=== PATIENT | female | born 1995 | race Caucasian/White ===

== ENCOUNTER 2024-05-21 17:58 | Observation (INO) | payer BC, OTHER ==
--- NOTE | 2024-05-21 20:00 | ERPHSYRPT ---
- History of Present Illness Time Seen by Provider: 05/21/24 19:45 Historian: patient Exam Limitations: no limitations Patient Subjective Stated Complaint: nausea, vomiting, diarrhea, abd pain since 11 am Triage Nursing Assessment: Pt brought back in wheelchair by Jeremiah Sanchez RN. Pt is alert and oriented x4. Pt's mother at bedside. Pt began feeling bad at 11am this morning, began vomiting with diarrhea at 2pm today, vomiting approx every 30 minutes. Pt c/o lower abd pain, describes as cramping and coming in waves. Pt states, "I've had some blood in my stool today too". Physician History: For the past 9 hours pt has had diarrhea with blood in her stool; for the past 6 hours pt has vomited about 20 times without blood; today pt has had lower abdominal cramping 9/10 in severity and a subjective fever. Pt also states she has had a cough productive of clear phlegm for the past 4 weeks. Allergies/Adverse Reactions: No Known Drug Allergies Allergy (Verified 05/21/24 19:39) Home Medications: Ethinyl Estradiol/Drospirenone [Izzy 28 Tablet] 1 tab PO DAILY 05/21/24 [History] Hx Tetanus, Diphtheria Vaccination/Date Given: Yes Hx Influenza Vaccination/Date Given: No Hx Pneumococcal Vaccination/Date Given: No Travel Risk - International Travel Have you traveled outside of the country in past 3 weeks: No - Emerging Infectious Disease Are you exhibiting symptoms associated with any current EIDs: Yes Symptoms: Abdominal Pain, Cough: New Onset, Headaches/Body Aches/, Vomitting - Review of Systems Constitutional: Fever Respiratory: Cough Abdominal/Gastrointestinal: Abdominal Pain, Vomiting, Diarrhea Genitourinary Symptoms: No Dysuria Neurological: No Headache - Past Medical History Pertinent Past Medical History: Yes Female Reproductive Disorders: Other Other Medical History: ovarian cyst - Past Surgical History Past Surgical History: Yes Other Surgical History: gum surgery and wisdom teeth - Female History Hx Last Menstrual Period: 2 weeks ago Hx Now: No - Social History Smoking Status: Never smoker Exposure to second hand smoke: No Drug Use: none Patient Lives Alone: No - Social Determinants of Health Will the patient participate in the screening: Yes Do you worry about a steady place to live?: No Do you have any problems with any of the following?: No known problems In the past 12 months,have you had to go without utilities?: No Transportation Issues: No Has anyone in your support network made you feel unsafe?: No Have you or anyone in your house had to go without enough: No - Nursing Vital Signs Nursing Vital Signs: Initial Vital Signs Temperature 98.7 F 05/21/24 19:26 Pulse Rate 149 H 05/21/24 19:26 Respiratory Rate 17 05/21/24 19:26 Blood Pressure 144/94 05/21/24 19:26 O2 Sat by Pulse Oximetry 99 05/21/24 19:26 Pain Scale Pain Intensity 3 - Physical Exam General Appearance: alert Eye Exam: PERRL/EOMI Ears, Nose, Throat Exam: TMs normal, pharyngeal erythema (minimal) Neck Exam: normal inspection Respiratory Exam: lungs clear Cardiovascular Exam: tachycardia Gastrointestinal/Abdomen Exam: No normal bowel sounds (B.S. hyperactive and normotonic) Back Exam: normal inspection Extremity Exam: No pedal edema Neurologic Exam: alert, cooperative Skin Exam: warm, dry SpO2 Interpretation: normal SpO2: 99 O2 Delivery: Room Air - Course Nursing assessment & vital signs reviewed: Yes - Radiology Exams Chest X-ray Interpretation: Interpreted by me, No Pneumonia - CT Exams Abdomen/Pelvis CT Interpretation: Negative (Normal appy. Mild colonic diarrhea. O/W negative.) Ordered Tests: Active Orders 24 hr Category Date Time Status EKG-ER Only STAT Care 05/21/24 19:56 Active IV Insertion STAT Care 05/21/24 19:56 Active ABDOMEN AND PELVIS W/0 CONTRAS [CT] Stat Exams 05/21/24 19:57 Taken CHEST 2 VIEWS (PA AND LAT) Stat Exams 05/21/24 19:57 Taken AMYLASE Stat Lab 05/21/24 20:40 Completed CBC W DIFF Stat Lab 05/21/24 20:40 Completed CMP Stat Lab 05/21/24 20:40 Completed HCG QUALITATIVE, SERUM Stat Lab 05/21/24 20:40 Completed LIPASE Stat Lab 05/21/24 20:40 Completed MAGNESIUM Stat Lab 05/21/24 20:40 Completed PROTIME WITH INR Stat Lab 05/21/24 20:40 Completed PTT Stat Lab 05/21/24 20:40 Completed TROPONIN Q4H Lab 05/21/24 20:40 Completed TROPONIN Q4H Lab 05/22/24 00:00 Ordered TROPONIN Q4H Lab 05/22/24 04:00 Ordered UA W/RFX UR CULTURE Stat Lab 05/21/24 22:46 Completed Medication Summary Discontinued Medications Generic Name Dose Route Start Last Admin Trade Name Chadwick PRN Reason Stop Dose Admin Sodium Chloride 1,000 mls @ 999 mls/hr 05/21/24 19:56 05/21/24 21:39 Sodium Chloride 0.9% 1000 Ml IV 05/21/24 20:56 Infused .Q1H1M STA Infusion Sodium Chloride Confirm 05/21/24 20:03 Sodium Chloride 0.9% 1000 Ml Administered 05/21/24 20:04 Dose 1,000 mls @ ud .ROUTE .STK-MED ONE Sodium Chloride 1,000 mls @ 999 mls/hr 05/21/24 21:37 05/21/24 21:39 Sodium Chloride 0.9% 1000 Ml IV 05/21/24 22:37 999 mls/hr .Q1H1M STA Administration Sodium Chloride Confirm 05/21/24 21:38 Sodium Chloride 0.9% 1000 Ml Administered 05/21/24 21:39 Dose 1,000 mls @ ud .ROUTE .STK-MED ONE Morphine Sulfate 2 mg 05/21/24 19:56 05/21/24 20:15 Morphine Sulfate 2 Mg/Ml Inj IV 05/21/24 19:57 2 mg STAT ONE Administration Morphine Sulfate Confirm 05/21/24 20:03 Morphine Sulfate 2 Mg/Ml Inj Administered 05/21/24 20:04 Dose 2 mg .ROUTE .STK-MED ONE Morphine Sulfate 2 mg 05/21/24 22:38 05/21/24 22:55 Morphine Sulfate 2 Mg/Ml Inj IV 05/21/24 22:39 2 mg STAT ONE Administration Morphine Sulfate Confirm 05/21/24 22:54 Morphine Sulfate 2 Mg/Ml Inj Administered 05/21/24 22:55 Dose 2 mg .ROUTE .STK-MED ONE Ondansetron HCl 4 mg 05/21/24 19:56 05/21/24 20:14 Ondansetron Hcl 4 Mg/2 Ml Vial IV 05/21/24 19:57 4 mg STAT ONE Administration Ondansetron HCl Confirm 05/21/24 20:03 Ondansetron Hcl 4 Mg/2 Ml Vial Administered 05/21/24 20:04 Dose 4 mg .ROUTE .STK-MED ONE Lab/Rad Data: Laboratory Result Diagrams 05/21/24 20:40 05/21/24 20:40 Laboratory Results 05/21/24 05/21/24 05/21/24 Range/Units 22:46 20:40 20:40 WBC (3.98-10.04) x10^3/uL RBC (3.93-5.22) x10^6/uL Hgb (11.2-15.7) g/dL Hct (34.1-44.9) % MCV (79.4-94.8) fL MCH (25.6-32.2) pg MCHC (32.2-35.5) g/dL RDW (11.7-14.4) % Plt Count (182-369) x10^3/uL MPV (9.4-12.3) fL Gran % (34.0-71.1) % Immature Gran % (Auto) (0.001-0.429) % Nucleat RBC Rel Count (0.00-0.2) % Eos # (Auto) (0.04-0.36) x10^3/uL Immature Gran # (Auto) (0.001-0.031) x10^3u/L Absolute Lymphs (auto) (1.18-3.74) x10^3/uL Absolute Monos (auto) (0.24-0.86) x10^3/uL Absolute Nucleated RBC (0.00-0.012) x10^3u/L Lymphocytes % (19.3-51.7) % Monocytes % (4.7-12.5) % Eosinophils % (0.7-5.8) % Basophils % (0.1-1.2) % Absolute Granulocytes (1.56-6.13) x10^3/uL Basophils # (0.01-0.08) x10^3/uL PT 11.0 (9.4-12.5) SECONDS INR 1.01 (0.8-3.0) APTT 27.2 (25.1-36.5) SECONDS Sodium (135-145) mmol/L Potassium (3.5-5.1) mmol/L Chloride (98-107) mmol/L Carbon Dioxide (22-30) mmol/L Anion Gap (5-15) MEQ/L BUN (7-17) mg/dL Creatinine (0.52-1.04) mg/dL Estimated GFR ML/MIN Glucose (74-106) mg/dL Calcium (8.4-10.2) mg/dL Magnesium (1.6-2.3) mg/dL Total Bilirubin (0.2-1.3) mg/dL AST (14-36) U/L ALT (0-35) U/L Alkaline Phosphatase (38-126) U/L Troponin I (0.000-0.033) ng/mL Serum Total Protein (6.3-8.2) g/dL Albumin (3.5-5.0) g/dL Amylase (30-110) U/L Lipase (23-300) U/L Serum HCG, Qual (NEGATIVE) Urine Color Yellow (Yellow) Urine Appearance Clear (Clear) Urine pH 5.0 (4.6-8.0) Ur Specific [place] 1.025 (1.005-1.030) Urine Protein Trace A (Negative) Urine Glucose (UA) Negative (Negative) mg/dL Urine Ketones 40 A (Negative) Urine Blood Negative (Negative) Urine Nitrite Negative (Negative) Urine Bilirubin Negative (Negative) Urine Urobilinogen 0.2 (0.2) mg/dL Ur Leukocyte Esterase Negative (Negative) U Hyaline Cast (Auto) NONE SEEN (0-2) /LPF Urine Microscopic RBC 0-2 (0-5) /HPF Urine Microscopic WBC 0-2 (0-5) /HPF Ur Epithelial Cells None Seen (None Seen) /HPF Urine Bacteria None Seen (None Seen) /HPF Urine Culture Reflexed NO (NO) Influenza Type A Ag NEGATIVE (NEGATIVE) Influenza Type B Ag NEGATIVE (NEGATIVE) RSV (PCR) NEGATIVE (NEGATIVE) SARS-CoV-2 (PCR) NEGATIVE (NEGATIVE) Group A Strep Antibody (NEGATIVE) 05/21/24 05/21/24 05/21/24 Range/Units 20:40 20:40 20:40 WBC (3.98-10.04) x10^3/uL RBC (3.93-5.22) x10^6/uL Hgb (11.2-15.7) g/dL Hct (34.1-44.9) % MCV (79.4-94.8) fL MCH (25.6-32.2) pg MCHC (32.2-35.5) g/dL RDW (11.7-14.4) % Plt Count (182-369) x10^3/uL MPV (9.4-12.3) fL Gran % (34.0-71.1) % Immature Gran % (Auto) (0.001-0.429) % Nucleat RBC Rel Count (0.00-0.2) % Eos # (Auto) (0.04-0.36) x10^3/uL Immature Gran # (Auto) (0.001-0.031) x10^3u/L Absolute Lymphs (auto) (1.18-3.74) x10^3/uL Absolute Monos (auto) (0.24-0.86) x10^3/uL Absolute Nucleated RBC (0.00-0.012) x10^3u/L Lymphocytes % (19.3-51.7) % Monocytes % (4.7-12.5) % Eosinophils % (0.7-5.8) % Basophils % (0.1-1.2) % Absolute Granulocytes (1.56-6.13) x10^3/uL Basophils # (0.01-0.08) x10^3/uL PT (9.4-12.5) SECONDS INR (0.8-3.0) APTT (25.1-36.5) SECONDS Sodium (135-145) mmol/L Potassium (3.5-5.1) mmol/L Chloride (98-107) mmol/L Carbon Dioxide (22-30) mmol/L Anion Gap (5-15) MEQ/L BUN (7-17) mg/dL Creatinine (0.52-1.04) mg/dL Estimated GFR ML/MIN Glucose (74-106) mg/dL Calcium (8.4-10.2) mg/dL Magnesium (1.6-2.3) mg/dL Total Bilirubin (0.2-1.3) mg/dL AST (14-36) U/L ALT (0-35) U/L Alkaline Phosphatase (38-126) U/L Troponin I < 0.012 (0.000-0.033) ng/mL Serum Total Protein (6.3-8.2) g/dL Albumin (3.5-5.0) g/dL Amylase (30-110) U/L Lipase (23-300) U/L Serum HCG, Qual NEGATIVE (NEGATIVE) Urine Color (Yellow) Urine Appearance (Clear) Urine pH (4.6-8.0) Ur Specific [place] (1.005-1.030) Urine Protein (Negative) Urine Glucose (UA) (Negative) mg/dL Urine Ketones (Negative) Urine Blood (Negative) Urine Nitrite (Negative) Urine Bilirubin (Negative) Urine Urobilinogen (0.2) mg/dL Ur Leukocyte Esterase (Negative) U Hyaline Cast (Auto) (0-2) /LPF Urine Microscopic RBC (0-5) /HPF Urine Microscopic WBC (0-5) /HPF Ur Epithelial Cells (None Seen) /HPF Urine Bacteria (None Seen) /HPF Urine Culture Reflexed (NO) Influenza Type A Ag (NEGATIVE) Influenza Type B Ag (NEGATIVE) RSV (PCR) (NEGATIVE) SARS-CoV-2 (PCR) (NEGATIVE) Group A Strep Antibody NOT DETECTED (NEGATIVE) 05/21/24 05/21/24 Range/Units 20:40 20:40 WBC 21.6 H (3.98-10.04) x10^3/uL RBC 5.87 H (3.93-5.22) x10^6/uL Hgb 16.3 H (11.2-15.7) g/dL Hct 51.7 H (34.1-44.9) % MCV 88.1 (79.4-94.8) fL MCH 27.8 (25.6-32.2) pg MCHC 31.5 L (32.2-35.5) g/dL RDW 11.9 (11.7-14.4) % Plt Count 299 (182-369) x10^3/uL MPV 11.6 (9.4-12.3) fL Gran % 91.5 H (34.0-71.1) % Immature Gran % (Auto) 0.5 H (0.001-0.429) % Nucleat RBC Rel Count 0.0 (0.00-0.2) % Eos # (Auto) 0.02 L (0.04-0.36) x10^3/uL Immature Gran # (Auto) 0.10 H (0.001-0.031) x10^3u/L Absolute Lymphs (auto) 0.33 L (1.18-3.74) x10^3/uL Absolute Monos (auto) 1.34 H (0.24-0.86) x10^3/uL Absolute Nucleated RBC 0.00 (0.00-0.012) x10^3u/L Lymphocytes % 1.5 L (19.3-51.7) % Monocytes % 6.2 (4.7-12.5) % Eosinophils % 0.1 L (0.7-5.8) % Basophils % 0.2 (0.1-1.2) % Absolute Granulocytes 19.80 H (1.56-6.13) x10^3/uL Basophils # 0.04 (0.01-0.08) x10^3/uL PT (9.4-12.5) SECONDS INR (0.8-3.0) APTT (25.1-36.5) SECONDS Sodium 139 (135-145) mmol/L Potassium 3.9 (3.5-5.1) mmol/L Chloride 108 H (98-107) mmol/L Carbon Dioxide 14 L* (22-30) mmol/L Anion Gap 20.2 H (5-15) MEQ/L BUN 19 H (7-17) mg/dL Creatinine 0.80 (0.52-1.04) mg/dL Estimated GFR 103.5 ML/MIN Glucose 119 H (74-106) mg/dL Calcium 9.7 (8.4-10.2) mg/dL Magnesium 1.9 (1.6-2.3) mg/dL Total Bilirubin 0.90 (0.2-1.3) mg/dL AST 30 (14-36) U/L ALT 23 (0-35) U/L Alkaline Phosphatase 106 (38-126) U/L Troponin I (0.000-0.033) ng/mL Serum Total Protein 8.4 H (6.3-8.2) g/dL Albumin 4.8 (3.5-5.0) g/dL Amylase 62 (30-110) U/L Lipase 29 (23-300) U/L Serum HCG, Qual (NEGATIVE) Urine Color (Yellow) Urine Appearance (Clear) Urine pH (4.6-8.0) Ur Specific [place] (1.005-1.030) Urine Protein (Negative) Urine Glucose (UA) (Negative) mg/dL Urine Ketones (Negative) Urine Blood (Negative) Urine Nitrite (Negative) Urine Bilirubin (Negative) Urine Urobilinogen (0.2) mg/dL Ur Leukocyte Esterase (Negative) U Hyaline Cast (Auto) (0-2) /LPF Urine Microscopic RBC (0-5) /HPF Urine Microscopic WBC (0-5) /HPF Ur Epithelial Cells (None Seen) /HPF Urine Bacteria (None Seen) /HPF Urine Culture Reflexed (NO) Influenza Type A Ag (NEGATIVE) Influenza Type B Ag (NEGATIVE) RSV (PCR) (NEGATIVE) SARS-CoV-2 (PCR) (NEGATIVE) Group A Strep Antibody (NEGATIVE) - Progress Progress: improved Discussed with : Other (Spoke with & discussed pt with Dr. Garza - obs) Will see patient in: hospital (observation) Counseled pt/family regarding: lab results, diagnosis, rad results Medical Desision Making - Diagnostic Testing Diagnostic test were ordered, analyzed, and reviewed by me: Yes Radiological Interpretation: Discussed w/ radiologist - Departure Departure Disposition: Observation Clinical Impression: Cough, Abdominal pain, Vomiting, Diarrhea, Tachycardia Condition: Stable Critical Care Time: No Referrals: SHIRA TEJADA, POINTER MACHINE OPERATOR [[employer] PROFESSION STAFF] - Follow up/PCP as directed
[2024-05-21] MEDS ORDERED: Zofran 4 MG/2 ML VIAL ONE (20:03)
[2024-05-21] MEDS ORDERED: MORPHINE SULFATE 2 MG INJ ONE ×2 (20:03→22:54)
[2024-05-21] MEDS ORDERED: Sodium Chloride 0.9% 1000 ML 1,000 ML ONE ×2 (20:03→21:38)
[2024-05-21] MEDS: Sodium Chloride 0.9% 1000 ML 1,000 ML IV STA ×2 (20:07→21:39)
[2024-05-21] MEDS: Zofran 4 MG/2 ML VIAL IV ONE (20:14)
[2024-05-21] MEDS: MORPHINE SULFATE 2 MG INJ IV ONE ×2 (20:15→22:55)
[2024-05-21 20:46] LABS: BASOPHIL % 0.2 % (0.1-1.2); Basophil (Absolute #) 0.04 x10^3/uL (0.01-0.08); Eosinophil % 0.1 % (0.7-5.8); Eosinophil (Absolute #) 0.02 x10^3/uL (0.04-0.36); Hematocrit 51.7 % (34.1-44.9); Hemoglobin 16.3 g/dL (11.2-15.7); IMMATURE GRAN % 0.5 % (0.001-0.429); Lymphocyte (Absolute #) 0.33 x10^3/uL (1.18-3.74); Lymphocytes % 1.5 % (19.3-51.7); Mean Cell Volume 88.1 fL (79.4-94.8); Mean Corpuscular Hemoglobin 27.8 pg (25.6-32.2); Mean Corpuscular Hgb Concent. 31.5 g/dL (32.2-35.5); Mean Platelet Volume 11.6 fL (9.4-12.3); Monocyte (Absolute #) 1.34 x10^3/uL (0.24-0.86); Monocytes % 6.2 % (4.7-12.5); Neutrophil % 91.5 % (34.0-71.1); Platelet Count 299 x10^3/uL (182-369); Red Blood Count 5.87 x10^6/uL (3.93-5.22); Red Cell Distribution Width 11.9 % (11.7-14.4); White Blood Count 21.6 x10^3/uL (3.98-10.04)
[2024-05-21 21:02] LABS: INR 1.01 (0.8-3.0); PTT 27.2 SECONDS (25.1-36.5)
[2024-05-21 21:03] LABS: ALBUMIN 4.8 g/dL (3.5-5.0); ANION GAP 20.2 MEQ/L (5-15); BILIRUBIN,TOTAL 0.9 mg/dL (0.2-1.3); Calcium 9.7 mg/dL (8.4-10.2); Creatinine 1 0.8 mg/dL (0.52-1.04); EST GLOMERULAR FILTRATION RATE 103.5 ML/MIN; MAGNESIUM 1.9 mg/dL (1.6-2.3); Potassium 3.9 mmol/L (3.5-5.1); Total Protein 8.4 g/dL (6.3-8.2)
[2024-05-21 21:09] LABS: HCG SERUM TEST NEGATIVE (NEGATIVE)
[2024-05-21 21:31] LABS: INFLUENZA A NEGATIVE (NEGATIVE); INFLUENZA B NEGATIVE (NEGATIVE); RESPIRATORY SYNCTIAL VIRUS NEGATIVE (NEGATIVE); SARS-CoV-2 Xpert Express NEGATIVE (NEGATIVE)
[2024-05-21 22:55] LABS: Appearance Clear (Clear); Bacteria None Seen /HPF (None Seen); Bilirubin Negative (Negative); Blood Negative (Negative); Epithelial Cells None Seen /HPF (None Seen); Glucose, Urine Negative (Negative); Hyaline Casts NONE SEEN /LPF (0-2); Ketones 40 (Negative); Leukocyte Esterase Negative (Negative); Nitrite Negative (Negative); Protein,Urine Dip Trace (Negative); RBC 0-2 /HPF (0-5); Specific Gravity 1.025 (1.005-1.030); Urobilinogen 0.2 mg/dL (0.2); WBC 0-2 /HPF (0-5)
[2024-05-21] MEDS ORDERED: MORPHINE SULFATE 2 MG INJ IV PRN (23:59)
[2024-05-21] MEDS ORDERED: Zofran 4 MG/2 ML VIAL IV PRN (23:59)
[2024-05-22 00:07] LABS: Slide Review 1 YES
[2024-05-22] MEDS: Sodium Chloride 0.9% 1000 ML 1,000 ML IV SCH (00:39)
--- NOTE | 2024-05-22 01:04 | PCM.HP ---
History of Present Illness - Chief Complaint Chief Complaint: Abdominal pain; Vomiting; Diarrhea; Tachycardia Date: 05/22/24 History of Present Illness: 28-year-old very pleasant lady with no significant past medical history came to the ER with/sudden onset of vomiting and diarrhea that started at 11 AM this morning. She told me that she also got some fresh bright blood. She did have some abdominal cramps. She was able to tolerate clear liquid. She denied having any travel outside no exposure to sick, no antibiotics use reported. In the ER the initial blood pressure was 144/94 she was afebrile with pulse of 149 it was sinus tachycardia. As for his blood workup concern it was significant for high white cell count 21.6 and low bicarb up to 14 INR 1.01 LFTs and lipase unremarkable and so does the urine. She was tested negative for influenza COVID and group A strep antibody. CT abdomen pelvis remained completely unremarkable as per my discussion with the ER physician. She was admitted for volume patient and further management of diarrhea - Review of Systems All Other Systems: Reviewed and Negative (14 systems reviewed and marked -ve ) Medications & Allergies Home Medications: Home Medication List Ethinyl Estradiol/Drospirenone [Izzy 28 Tablet] 1 tab PO DAILY 05/21/24 [History Confirmed 05/21/24] Allergies/Adverse Reactions: Allergies Allergy/AdvReac Type Severity Reaction Status Date / Time No Known Drug Allergies Allergy Verified 05/21/24 19:39 - Past Medical History Past Medical History: Yes Neurological History: No Pertinent History ENT History: No Pertinent History Cardiac History: No Pertinent History Respiratory History: No Pertinent History Endocrine Medical History: No Pertinent History Musculoskelatal History: No Pertinent History GI Medical History: No Pertinent History History: No Pertinent History Pyscho-Social History: No Pertinent History Reproductive Disorders: Other Comment: ovarian cyst - Female History Hx Last Menstrual Period: 2 weeks ago Are you now?: No - Past Surgical History Past Surgical History: Yes Neuro Surgical History: No Pertinent History Cardiac History: No Pertinent History Respiratory Surgery: No Pertinent History GI Surgical History: No Pertinent History Genitourinary Surgical Hx: No Pertinent History Musculskeletal Surgical Hx: No Pertinent History Female Surgical History: No Pertinent History Other Surgical History: gum surgery and wisdom teeth Significant Family History: no pertinent family hx - Social History Smoking Status: Never smoker Exposure to second hand smoke: No Alcohol: None Drug Use: none - Social Determinants of Health Will the patient participate in the screening: Yes Do you worry about a steady place to live?: No Do you have any problems with any of the following?: No known problems In the past 12 months,have you had to go without utilities?: No Have you or anyone in your house had to go without enough: No Transportation Issues: No Has anyone in your support network made you feel unsafe?: No Does the patient want assistance with any of the above?: No - Physical Exam Vital Signs: Vital Signs - 24 hr Temp Pulse Resp BP BP Pulse Ox 05/22/24 00:06 97.5 F 128 H 16 120/67 100 05/21/24 23:55 97.5 F 128 H 16 120/67 100 05/21/24 23:30 113/69 98 05/21/24 23:18 99 05/21/24 23:00 120 H 16 131/79 99 05/21/24 22:30 109/69 05/21/24 22:00 130 H 17 122/73 100 05/21/24 21:37 117 H 18 124/77 100 05/21/24 21:00 125 H 16 114/85 98 05/21/24 20:59 100 05/21/24 20:50 78 L 05/21/24 20:40 100 05/21/24 20:01 124/71 05/21/24 20:00 120 H 16 124/71 99 05/21/24 19:50 99 05/21/24 19:40 99 05/21/24 19:32 81 L 05/21/24 19:27 144/94 93 L 05/21/24 19:26 98.7 F 149 H 17 144/94 99 Additional Findings: 05/22/24 01:04 HEENT Young aged, average built in no distress NECK Supple,no thyromegaly, CVS S1+S2 + 0, no murmers RESP Bilateral equal air entry without Crepts/Wheezes heard GIT Soft non tender,non distended Skin, No rah, no Bruises LEGS No Edema PSYCH Normal,mood, judgement and insight NEURO AOX3, no focal deficit Results - Labs Lab/Micro Results: Lab Results-Last 24 Hours 05/21/24 05/21/24 05/21/24 Range/Units 20:40 20:40 20:40 WBC 21.6 H (3.98-10.04) x10^3/uL RBC 5.87 H (3.93-5.22) x10^6/uL Hgb 16.3 H (11.2-15.7) g/dL Hct 51.7 H (34.1-44.9) % MCV 88.1 (79.4-94.8) fL MCH 27.8 (25.6-32.2) pg MCHC 31.5 L (32.2-35.5) g/dL RDW 11.9 (11.7-14.4) % Plt Count 299 (182-369) x10^3/uL MPV 11.6 (9.4-12.3) fL Gran % 91.5 H (34.0-71.1) % Immature Gran % (Auto) 0.5 H (0.001-0.429) % Nucleat RBC Rel Count 0.0 (0.00-0.2) % Eos # (Auto) 0.02 L (0.04-0.36) x10^3/uL Immature Gran # (Auto) 0.10 H (0.001-0.031) x10^3u/L Absolute Lymphs (auto) 0.33 L (1.18-3.74) x10^3/uL Absolute Monos (auto) 1.34 H (0.24-0.86) x10^3/uL Absolute Nucleated RBC 0.00 (0.00-0.012) x10^3u/L Lymphocytes % 1.5 L (19.3-51.7) % Monocytes % 6.2 (4.7-12.5) % Eosinophils % 0.1 L (0.7-5.8) % Basophils % 0.2 (0.1-1.2) % Absolute Granulocytes 19.80 H (1.56-6.13) x10^3/uL Basophils # 0.04 (0.01-0.08) x10^3/uL PT (9.4-12.5) SECONDS INR (0.8-3.0) APTT (25.1-36.5) SECONDS Sodium 139 (135-145) mmol/L Potassium 3.9 (3.5-5.1) mmol/L Chloride 108 H (98-107) mmol/L Carbon Dioxide 14 L* (22-30) mmol/L Anion Gap 20.2 H (5-15) MEQ/L BUN 19 H (7-17) mg/dL Creatinine 0.80 (0.52-1.04) mg/dL Estimated GFR 103.5 ML/MIN Glucose 119 H (74-106) mg/dL Calcium 9.7 (8.4-10.2) mg/dL Magnesium 1.9 (1.6-2.3) mg/dL Total Bilirubin 0.90 (0.2-1.3) mg/dL AST 30 (14-36) U/L ALT 23 (0-35) U/L Alkaline Phosphatase 106 (38-126) U/L Troponin I (0.000-0.033) ng/mL Serum Total Protein 8.4 H (6.3-8.2) g/dL Albumin 4.8 (3.5-5.0) g/dL Amylase 62 (30-110) U/L Lipase 29 (23-300) U/L Serum HCG, Qual (NEGATIVE) Urine Color (Yellow) Urine Appearance (Clear) Urine pH (4.6-8.0) Ur Specific Holl[place] (1.005-1.030) Urine Protein (Negative) Urine Glucose (UA) (Negative) mg/dL Urine Ketones (Negative) Urine Blood (Negative) Urine Nitrite (Negative) Urine Bilirubin (Negative) Urine Urobilinogen (0.2) mg/dL Ur Leukocyte Esterase (Negative) U Hyaline Cast (Auto) (0-2) /LPF Urine Microscopic RBC (0-5) /HPF Urine Microscopic WBC (0-5) /HPF Ur Epithelial Cells (None Seen) /HPF Urine Bacteria (None Seen) /HPF Urine Culture Reflexed (NO) Influenza Type A Ag (NEGATIVE) Influenza Type B Ag (NEGATIVE) RSV (PCR) (NEGATIVE) SARS-CoV-2 (PCR) (NEGATIVE) Group A Strep Antibody NOT DETECTED (NEGATIVE) Slides for Path Review YES 05/21/24 05/21/24 05/21/24 Range/Units 20:40 20:40 20:40 WBC (3.98-10.04) x10^3/uL RBC (3.93-5.22) x10^6/uL Hgb (11.2-15.7) g/dL Hct (34.1-44.9) % MCV (79.4-94.8) fL MCH (25.6-32.2) pg MCHC (32.2-35.5) g/dL RDW (11.7-14.4) % Plt Count (182-369) x10^3/uL MPV (9.4-12.3) fL Gran % (34.0-71.1) % Immature Gran % (Auto) (0.001-0.429) % Nucleat RBC Rel Count (0.00-0.2) % Eos # (Auto) (0.04-0.36) x10^3/uL Immature Gran # (Auto) (0.001-0.031) x10^3u/L Absolute Lymphs (auto) (1.18-3.74) x10^3/uL Absolute Monos (auto) (0.24-0.86) x10^3/uL Absolute Nucleated RBC (0.00-0.012) x10^3u/L Lymphocytes % (19.3-51.7) % Monocytes % (4.7-12.5) % Eosinophils % (0.7-5.8) % Basophils % (0.1-1.2) % Absolute Granulocytes (1.56-6.13) x10^3/uL Basophils # (0.01-0.08) x10^3/uL PT (9.4-12.5) SECONDS INR (0.8-3.0) APTT (25.1-36.5) SECONDS Sodium (135-145) mmol/L Potassium (3.5-5.1) mmol/L Chloride (98-107) mmol/L Carbon Dioxide (22-30) mmol/L Anion Gap (5-15) MEQ/L BUN (7-17) mg/dL Creatinine (0.52-1.04) mg/dL Estimated GFR ML/MIN Glucose (74-106) mg/dL Calcium (8.4-10.2) mg/dL Magnesium (1.6-2.3) mg/dL Total Bilirubin (0.2-1.3) mg/dL AST (14-36) U/L ALT (0-35) U/L Alkaline Phosphatase (38-126) U/L Troponin I < 0.012 (0.000-0.033) ng/mL Serum Total Protein (6.3-8.2) g/dL Albumin (3.5-5.0) g/dL Amylase (30-110) U/L Lipase (23-300) U/L Serum HCG, Qual NEGATIVE (NEGATIVE) Urine Color (Yellow) Urine Appearance (Clear) Urine pH (4.6-8.0) Ur Specific Holl[place] (1.005-1.030) Urine Protein (Negative) Urine Glucose (UA) (Negative) mg/dL Urine Ketones (Negative) Urine Blood (Negative) Urine Nitrite (Negative) Urine Bilirubin (Negative) Urine Urobilinogen (0.2) mg/dL Ur Leukocyte Esterase (Negative) U Hyaline Cast (Auto) (0-2) /LPF Urine Microscopic RBC (0-5) /HPF Urine Microscopic WBC (0-5) /HPF Ur Epithelial Cells (None Seen) /HPF Urine Bacteria (None Seen) /HPF Urine Culture Reflexed (NO) Influenza Type A Ag NEGATIVE (NEGATIVE) Influenza Type B Ag NEGATIVE (NEGATIVE) RSV (PCR) NEGATIVE (NEGATIVE) SARS-CoV-2 (PCR) NEGATIVE (NEGATIVE) Group A Strep Antibody (NEGATIVE) Slides for Path Review 05/21/24 05/21/24 Range/Units 20:40 22:46 WBC (3.98-10.04) x10^3/uL RBC (3.93-5.22) x10^6/uL Hgb (11.2-15.7) g/dL Hct (34.1-44.9) % MCV (79.4-94.8) fL MCH (25.6-32.2) pg MCHC (32.2-35.5) g/dL RDW (11.7-14.4) % Plt Count (182-369) x10^3/uL MPV (9.4-12.3) fL Gran % (34.0-71.1) % Immature Gran % (Auto) (0.001-0.429) % Nucleat RBC Rel Count (0.00-0.2) % Eos # (Auto) (0.04-0.36) x10^3/uL Immature Gran # (Auto) (0.001-0.031) x10^3u/L Absolute Lymphs (auto) (1.18-3.74) x10^3/uL Absolute Monos (auto) (0.24-0.86) x10^3/uL Absolute Nucleated RBC (0.00-0.012) x10^3u/L Lymphocytes % (19.3-51.7) % Monocytes % (4.7-12.5) % Eosinophils % (0.7-5.8) % Basophils % (0.1-1.2) % Absolute Granulocytes (1.56-6.13) x10^3/uL Basophils # (0.01-0.08) x10^3/uL PT 11.0 (9.4-12.5) SECONDS INR 1.01 (0.8-3.0) APTT 27.2 (25.1-36.5) SECONDS Sodium (135-145) mmol/L Potassium (3.5-5.1) mmol/L Chloride (98-107) mmol/L Carbon Dioxide (22-30) mmol/L Anion Gap (5-15) MEQ/L BUN (7-17) mg/dL Creatinine (0.52-1.04) mg/dL Estimated GFR ML/MIN Glucose (74-106) mg/dL Calcium (8.4-10.2) mg/dL Magnesium (1.6-2.3) mg/dL Total Bilirubin (0.2-1.3) mg/dL AST (14-36) U/L ALT (0-35) U/L Alkaline Phosphatase (38-126) U/L Troponin I (0.000-0.033) ng/mL Serum Total Protein (6.3-8.2) g/dL Albumin (3.5-5.0) g/dL Amylase (30-110) U/L Lipase (23-300) U/L Serum HCG, Qual (NEGATIVE) Urine Color Yellow (Yellow) Urine Appearance Clear (Clear) Urine pH 5.0 (4.6-8.0) Ur Specific [place] 1.025 (1.005-1.030) Urine Protein Trace A (Negative) Urine Glucose (UA) Negative (Negative) mg/dL Urine Ketones 40 A (Negative) Urine Blood Negative (Negative) Urine Nitrite Negative (Negative) Urine Bilirubin Negative (Negative) Urine Urobilinogen 0.2 (0.2) mg/dL Ur Leukocyte Esterase Negative (Negative) U Hyaline Cast (Auto) NONE SEEN (0-2) /LPF Urine Microscopic RBC 0-2 (0-5) /HPF Urine Microscopic WBC 0-2 (0-5) /HPF Ur Epithelial Cells None Seen (None Seen) /HPF Urine Bacteria None Seen (None Seen) /HPF Urine Culture Reflexed NO (NO) Influenza Type A Ag (NEGATIVE) Influenza Type B Ag (NEGATIVE) RSV (PCR) (NEGATIVE) SARS-CoV-2 (PCR) (NEGATIVE) Group A Strep Antibody (NEGATIVE) Slides for Path Review - Radiology Impressions Radiology Exams & Impressions: Radiology Procedures Category Date Time Status ABDOMEN AND PELVIS W/0 CONTRAS [CT] Stat Exams 05/21/24 19:57 Taken CHEST 2 VIEWS (PA AND LAT) Stat Exams 05/21/24 19:57 Taken Assessment/Plan (1) Abdominal pain Current Visit: Yes Status: Acute Code(s): R10.9 - UNSPECIFIED ABDOMINAL PAIN (2) Tachycardia Current Visit: Yes Status: Acute Code(s): R00.0 - TACHYCARDIA, UNSPECIFIED (3) Diarrhea Current Visit: Yes Status: Acute Code(s): R19.7 - DIARRHEA, UNSPECIFIED Telemedicine Encounter - Telemedicine Encounter Telemedicine Encounter: The entirety of this encounter was performed via Telemedicine"This visit was performed using real-time audio and video connection between my location and thepatients locationwith the assistance of a surrogateat the patients location. Written or verbal consent was obtained from the patient/guardian to perform this visit [facility] technology. Any patient questions regarding the telemedicine interaction were answered. Intractable vomiting and diarrhea Patient admitted with sudden onset of vomiting and diarrhea but red blood in the stools LFTs and lipase unremarkable CT abdomen pelvis remained negative Will check for C. difficile and stool ova and pathogens Continue supportive therapy with IV fluids, antiemetics Metabolic acidosis Due to diarrhea Bicarb is down to 14 Patient received 2 L fluid in ER followed by normal saline at 125 cc/h Will recheck labs in the morning if sodium bicarb is still low we will start on bicarb drip Tachycardia, sinus Due to volume depletion getting better No further workup needed DVT prophylax SCD only CODE STATUS full Discharge planning pending clinical course to be determined. I have reviewed patient lab vitals and imaging in detail question and concerns were addressed
[2024-05-22] MEDS ORDERED: TYLENOL 325 MG PO PRN (01:19)
[2024-05-22 05:34] LABS: 027 TOX PROD PRESUMPTIVE NEGATIVE (NEGATIVE); TOXIGENIC C. DIFF ORG NEGATIVE (NEGATIVE)
[2024-05-22 06:23] LABS: Absolute Neutrophil Ct (ANC) 9.79 x10^3/uL (1.56-6.13); BASOPHIL % 0.2 % (0.1-1.2); Basophil (Absolute #) 0.02 x10^3/uL (0.01-0.08); Eosinophil % 0.2 % (0.7-5.8); Eosinophil (Absolute #) 0.02 x10^3/uL (0.04-0.36); Hematocrit 35.1 % (34.1-44.9); Hemoglobin 11.3 g/dL (11.2-15.7); IMMATURE GRAN # 0.05 x10^3u/L (0.001-0.031); IMMATURE GRAN % 0.5 % (0.001-0.429); Lymphocyte (Absolute #) 0.44 x10^3/uL (1.18-3.74); Lymphocytes % 4.1 % (19.3-51.7); Mean Cell Volume 85.4 fL (79.4-94.8); Mean Corpuscular Hemoglobin 27.5 pg (25.6-32.2); Mean Corpuscular Hgb Concent. 32.2 g/dL (32.2-35.5); Mean Platelet Volume 11.7 fL (9.4-12.3); Monocytes % 3.7 % (4.7-12.5); Neutrophil % 91.3 % (34.0-71.1); Platelet Count 217 x10^3/uL (182-369); Red Blood Count 4.11 x10^6/uL (3.93-5.22); Red Cell Distribution Width 12.2 % (11.7-14.4); White Blood Count 10.7 x10^3/uL (3.98-10.04)
[2024-05-22 06:46] LABS: ANION GAP 11.1 MEQ/L (5-15); BILIRUBIN,TOTAL 0.3 mg/dL (0.2-1.3); Calcium 7.6 mg/dL (8.4-10.2); Creatinine 1 0.63 mg/dL (0.52-1.04); EST GLOMERULAR FILTRATION RATE 124.6 ML/MIN; MAGNESIUM 1.5 mg/dL (1.6-2.3); Potassium 3.4 mmol/L (3.5-5.1); Total Protein 5.4 g/dL (6.3-8.2)
[2024-05-22] MEDS: MAGNESIUM SULF 2 G/50 ML BAG 2 GM/50 ML PIGGYBACK IV ONE (07:35)
[2024-05-22] MEDS: Klor Con PO SCH (07:36)
--- NOTE | 2024-05-22 08:51 | XRAY ---
Indication: Cough. Comparison: None PA/lateral chest demonstrates normal heart and lungs. Bony thorax intact with minimal levoscoliosis and pectus excavatum deformity.
--- NOTE | 2024-05-22 08:53 | XRAY ---
Indication: Abdominal pain, vomiting, and diarrhea. Multiple contiguous axial images obtained through the abdomen and pelvis without contrast. Comparison: January 07, 2015 Lung bases remain clear. Heart not enlarged. Noncontrasted stomach and bowel loops appear nonobstructed with normal appendix. New mild colonic diarrhea. No free fluid/air. Remaining liver, gallbladder, pancreas, spleen, adrenal glands, kidneys, ureters, bladder, uterus, and aorta are unremarkable for noncontrast exam. Osseous structures intact with incompletely visualized pectus excavatum deformity. No ventral or inguinal hernias. Impression: Colonic diarrhea. Remaining CT abdomen/pelvis without contrast exam is again negative.
[2024-05-22 09:16] LABS: Slide Review 1 YES
[2024-05-22] MEDS: Pepcid 20 MG VIAL IV SCH (09:23)
[2024-05-22] MEDS: SODIUM BICARBONATE PO SCH (09:23)
[2024-05-22] MEDS: IMODIUM 2 MG PO PRN (14:31)
[2024-05-22 16:49] LABS: ANION GAP 8.3 MEQ/L (5-15); Creatinine 1 0.71 mg/dL (0.52-1.04); EST GLOMERULAR FILTRATION RATE 119.4 ML/MIN; Potassium 4.1 mmol/L (3.5-5.1)
--- NOTE | 2024-05-23 05:09 | PCM.DS ---
Discharge Summary Date of Admission: 05/21/24 23:52 Date of Discharge: 05/23/24 Admitting Physician: VELVET ARANA MD Primary Care Provider: JEWELS SALMON Allergies Allergies No Known Drug Allergies Allergy (Verified 05/21/24 19:39) Hospital Summary - Hospital Course Hospital Course: 28-year-old very pleasant lady with no significant past medical history came to the ER with/sudden onset of vomiting and diarrhea that started at 11 AM this morning. She told me that she also got some fresh bright blood. She did have some abdominal cramps. She was able to tolerate clear liquid. She denied having any travel outside no exposure to sick, no antibiotics use reported. In the ER the initial blood pressure was 144/94 she was afebrile with pulse of 149 it was sinus tachycardia. As for his blood workup concern it was significant for high white cell count 21.6 and low bicarb up to 14 INR 1.01 LFTs and lipase unremarkable and so does the urine. She was tested negative for influenza COVID and group A strep antibody. CT abdomen pelvis remained completely unremarkable . She was admitted for volume patient and further management of diarrhea. Nausea and vomiting have resolved. Stools are more formed - only two in 24 hours. Patient is tolerating a diet. Will dismiss home with zofran. No further hematochezia. Labs and vitals stable. Discharge Note New Diagnosis:viral gastroenteritis. New Medications: Zofran Follow Up: PCP Outpatient testing to order: Latest Assessment & Plan Intractable vomiting and diarrhea Patient admitted with sudden onset of vomiting and diarrhea but red blood in the stools LFTs and lipase unremarkable CT abdomen pelvis remained negative cdiff negative Continue supportive therapy with IV fluids, antiemetics 05/23: -Resolved Metabolic acidosis Due to diarrhea Bicarb is down to 14 on admission now at Patient received 2 L fluid in ER followed by normal saline at 125 cc/h 05/23: -improved - I suspect she will continue to improve as her diarrheal episodes improve Tachycardia, sinus Due to volume depletion getting better No further workup needed 05/23: -resolved I spent 35 minutes [id number] with the patient on the day of discharge performing discharge exam, discussing hospital stay and discharge instructions with patient and caregivers, preparation of discharge records, prescriptions & referral forms and addressing any questions/concerns the patient had as documented above. - Vitals & Intake/Output Vital Signs: Vital Signs Temperature 98.1 F 05/23/24 03:48 Pulse Rate 86 05/23/24 03:48 Respiratory Rate 16 05/23/24 03:48 Blood Pressure 97/56 05/23/24 03:48 O2 Sat by Pulse Oximetry 97 05/23/24 03:48 Intake & Output: Intake & Output 05/20/24 05/21/24 05/22/24 05/23/24 11:59 11:59 11:59 11:59 Intake Total 4724 Balance 4724 Weight 52.5 kg - Lab Result Diagrams: 05/23/24 05:18 05/23/24 05:18 Lab Results-Last 24 Hrs: Lab Results-Last 24 Hours 05/22/24 05/22/24 05/22/24 Range/Units 04:20 06:21 06:21 WBC 10.7 H (3.98-10.04) x10^3/uL RBC 4.11 (3.93-5.22) x10^6/uL Hgb 11.3 D (11.2-15.7) g/dL Hct 35.1 (34.1-44.9) % MCV 85.4 (79.4-94.8) fL MCH 27.5 (25.6-32.2) pg MCHC 32.2 (32.2-35.5) g/dL RDW 12.2 (11.7-14.4) % Plt Count 217 (182-369) x10^3/uL MPV 11.7 (9.4-12.3) fL Gran % 91.3 H (34.0-71.1) % Immature Gran % (Auto) 0.5 H (0.001-0.429) % Nucleat RBC Rel Count 0.0 (0.00-0.2) % Eos # (Auto) 0.02 L (0.04-0.36) x10^3/uL Immature Gran # (Auto) 0.05 H (0.001-0.031) x10^3u/L Absolute Lymphs (auto) 0.44 L (1.18-3.74) x10^3/uL Absolute Monos (auto) 0.40 (0.24-0.86) x10^3/uL Absolute Nucleated RBC 0.00 (0.00-0.012) x10^3u/L Lymphocytes % 4.1 L (19.3-51.7) % Monocytes % 3.7 L (4.7-12.5) % Eosinophils % 0.2 L (0.7-5.8) % Basophils % 0.2 (0.1-1.2) % Absolute Granulocytes 9.79 H (1.56-6.13) x10^3/uL Basophils # 0.02 (0.01-0.08) x10^3/uL Sodium (135-145) mmol/L Potassium (3.5-5.1) mmol/L Chloride (98-107) mmol/L Carbon Dioxide (22-30) mmol/L Anion Gap (5-15) MEQ/L BUN (7-17) mg/dL Creatinine (0.52-1.04) mg/dL Estimated GFR ML/MIN Glucose (74-106) mg/dL Calcium (8.4-10.2) mg/dL Magnesium (1.6-2.3) mg/dL Total Bilirubin (0.2-1.3) mg/dL AST (14-36) U/L ALT (0-35) U/L Alkaline Phosphatase (38-126) U/L Troponin I < 0.012 (0.000-0.033) ng/mL Serum Total Protein (6.3-8.2) g/dL Albumin (3.5-5.0) g/dL C. difficile Screen NEGATIVE (NEGATIVE) C.difficile 027-NAP1-B1 PRESUMPTIVE NEGATIVE (NEGATIVE) Slides for Path Review YES 05/22/24 05/22/24 05/22/24 Range/Units 06:21 10:40 14:10 WBC (3.98-10.04) x10^3/uL RBC (3.93-5.22) x10^6/uL Hgb (11.2-15.7) g/dL Hct (34.1-44.9) % MCV (79.4-94.8) fL MCH (25.6-32.2) pg MCHC (32.2-35.5) g/dL RDW (11.7-14.4) % Plt Count (182-369) x10^3/uL MPV (9.4-12.3) fL Gran % (34.0-71.1) % Immature Gran % (Auto) (0.001-0.429) % Nucleat RBC Rel Count (0.00-0.2) % Eos # (Auto) (0.04-0.36) x10^3/uL Immature Gran # (Auto) (0.001-0.031) x10^3u/L Absolute Lymphs (auto) (1.18-3.74) x10^3/uL Absolute Monos (auto) (0.24-0.86) x10^3/uL Absolute Nucleated RBC (0.00-0.012) x10^3u/L Lymphocytes % (19.3-51.7) % Monocytes % (4.7-12.5) % Eosinophils % (0.7-5.8) % Basophils % (0.1-1.2) % Absolute Granulocytes (1.56-6.13) x10^3/uL Basophils # (0.01-0.08) x10^3/uL Sodium 136 (135-145) mmol/L Potassium 3.4 L 3.7 4.0 (3.5-5.1) mmol/L Chloride 112 H (98-107) mmol/L Carbon Dioxide 17 L (22-30) mmol/L Anion Gap 11.1 (5-15) MEQ/L BUN 13 (7-17) mg/dL Creatinine 0.63 (0.52-1.04) mg/dL Estimated GFR 124.6 ML/MIN Glucose 120 H (74-106) mg/dL Calcium 7.6 L D (8.4-10.2) mg/dL Magnesium 1.5 L (1.6-2.3) mg/dL Total Bilirubin 0.30 (0.2-1.3) mg/dL AST 24 (14-36) U/L ALT 17 (0-35) U/L Alkaline Phosphatase 54 (38-126) U/L Troponin I (0.000-0.033) ng/mL Serum Total Protein 5.4 L (6.3-8.2) g/dL Albumin 3.0 L (3.5-5.0) g/dL C. difficile Screen (NEGATIVE) C.difficile 027-NAP1-B1 (NEGATIVE) Slides for Path Review 05/22/24 Range/Units 16:30 WBC (3.98-10.04) x10^3/uL RBC (3.93-5.22) x10^6/uL Hgb (11.2-15.7) g/dL Hct (34.1-44.9) % MCV (79.4-94.8) fL MCH (25.6-32.2) pg MCHC (32.2-35.5) g/dL RDW (11.7-14.4) % Plt Count (182-369) x10^3/uL MPV (9.4-12.3) fL Gran % (34.0-71.1) % Immature Gran % (Auto) (0.001-0.429) % Nucleat RBC Rel Count (0.00-0.2) % Eos # (Auto) (0.04-0.36) x10^3/uL Immature Gran # (Auto) (0.001-0.031) x10^3u/L Absolute Lymphs (auto) (1.18-3.74) x10^3/uL Absolute Monos (auto) (0.24-0.86) x10^3/uL Absolute Nucleated RBC (0.00-0.012) x10^3u/L Lymphocytes % (19.3-51.7) % Monocytes % (4.7-12.5) % Eosinophils % (0.7-5.8) % Basophils % (0.1-1.2) % Absolute Granulocytes (1.56-6.13) x10^3/uL Basophils # (0.01-0.08) x10^3/uL Sodium 134 L (135-145) mmol/L Potassium 4.1 (3.5-5.1) mmol/L Chloride 111 H (98-107) mmol/L Carbon Dioxide 19 L (22-30) mmol/L Anion Gap 8.3 (5-15) MEQ/L BUN 8 (7-17) mg/dL Creatinine 0.71 (0.52-1.04) mg/dL Estimated GFR 119.4 ML/MIN Glucose 96 (74-106) mg/dL Calcium 8.0 L (8.4-10.2) mg/dL Magnesium (1.6-2.3) mg/dL Total Bilirubin (0.2-1.3) mg/dL AST (14-36) U/L ALT (0-35) U/L Alkaline Phosphatase (38-126) U/L Troponin I (0.000-0.033) ng/mL Serum Total Protein (6.3-8.2) g/dL Albumin (3.5-5.0) g/dL C. difficile Screen (NEGATIVE) C.difficile 027-NAP1-B1 (NEGATIVE) Slides for Path Review Micro Results-Entire Visit: Microbiology 05/22/24 04:20 Ova and Parasite Result 1 - Final Stool Not Reportable Ova and Parasite Result 2 - Final Not Reportable Ova and Parasite Result 3 - Final Not Reportable Ova and Parasite Result 4 - Final Not Reportable Antimicrobic Susceptibility - Final Not Reportable - Radiology Exams Ordered Rad Exams-Entire Visit: Radiology Procedures Category Date Time Status ABDOMEN AND PELVIS W/0 CONTRAS [CT] Stat Exams 05/21/24 19:57 Completed CHEST 2 VIEWS (PA AND LAT) Stat Exams 05/21/24 19:57 Completed Discharge Exam General Appearance: no apparent distress Neurologic Exam: alert, oriented x 3, cooperative Eye Exam: PERRL Ears, Nose, Throat Exam: normal ENT inspection Neck Exam: normal inspection Respiratory Exam: normal breath sounds, lungs clear Cardiovascular Exam: regular rate/rhythm, normal heart sounds Gastrointestinal/Abdomen Exam: soft, normal bowel sounds Pelvic Exam: deferred Rectal Exam: deferred Back Exam: normal inspection Extremity Exam: normal inspection Final Diagnosis/Problem List - Final Discharge Diagnosis/Problem (1) Intractable nausea and vomiting Current Visit: Yes Status: Resolved Code(s): R11.2 - NAUSEA WITH VOMITING, UNSPECIFIED (2) Metabolic acidosis Current Visit: Yes Status: Acute Code(s): E87.20 - ACIDOSIS, UNSPECIFIED (3) Tachycardia Current Visit: Yes Status: Resolved Code(s): R00.0 - TACHYCARDIA, UNSPECIFIED - Discharge Discharge Date: 05/23/24 Disposition: Home, Self-Care Condition: Stable Prescriptions: New Ondansetron ODT 4 MG [Zofran Odt 4 mg] 4 mg PO Q6HPRN PRN 30 Days #20 tab PRN Reason: Nausea Continue Ethinyl Estradiol/Drospirenone [Izzy 28 Tablet] 1 tab PO DAILY Follow up with: JEWELS SALMON NP [Primary Care Provider] - 06/02/24 1:15 pm
[2024-05-23 05:24] LABS: Absolute Neutrophil Ct (ANC) 4.47 x10^3/uL (1.56-6.13); BASOPHIL % 0.3 % (0.1-1.2); Basophil (Absolute #) 0.02 x10^3/uL (0.01-0.08); Eosinophil % 5.8 % (0.7-5.8); Eosinophil (Absolute #) 0.41 x10^3/uL (0.04-0.36); Hematocrit 33.7 % (34.1-44.9); Hemoglobin 10.6 g/dL (11.2-15.7); IMMATURE GRAN # 0.02 x10^3u/L (0.001-0.031); IMMATURE GRAN % 0.3 % (0.001-0.429); Lymphocytes % 22.6 % (19.3-51.7); Mean Cell Volume 87.8 fL (79.4-94.8); Mean Corpuscular Hemoglobin 27.6 pg (25.6-32.2); Mean Corpuscular Hgb Concent. 31.5 g/dL (32.2-35.5); Monocyte (Absolute #) 0.55 x10^3/uL (0.24-0.86); Monocytes % 7.8 % (4.7-12.5); Neutrophil % 63.2 % (34.0-71.1); Platelet Count 181 x10^3/uL (182-369); Red Blood Count 3.84 x10^6/uL (3.93-5.22); Red Cell Distribution Width 12.6 % (11.7-14.4); White Blood Count 7.1 x10^3/uL (3.98-10.04)
[2024-05-23 05:42] LABS: ALBUMIN 2.9 g/dL (3.5-5.0); ANION GAP 8.6 MEQ/L (5-15); BILIRUBIN,TOTAL 0.2 mg/dL (0.2-1.3); Calcium 7.9 mg/dL (8.4-10.2); Creatinine 1 0.7 mg/dL (0.52-1.04); EST GLOMERULAR FILTRATION RATE 121.5 ML/MIN; MAGNESIUM 2.2 mg/dL (1.6-2.3); Total Protein 5.6 g/dL (6.3-8.2)
[2024-05-23 07:02] VITALS: BP 110/67; PULSE 95; RESP 18; TEMP 98.8; O2SAT 100
== END 2024-05-23 11:24 | disposition home or self-care (01) ==
LOC: ED 17:58 → MED SURG 23:52
PROVIDERS: ADMIT Internal Medicine; ATTEND Internal Medicine
DX: R11.2 Nausea with vomiting, unspecified (principal); E87.20 Acidosis, unspecified; R00.0 Tachycardia, unspecified; K92.1 Melena; R10.9 Unspecified abdominal pain; R19.7 Diarrhea, unspecified
CPT/HCPCS: 0241U; 36415; 71046; 74176; 80048; 80053; 81001; 82150; 83690; 83735; 84132; 84484; 84703; 85025; 85610; 85730; 87177; 87209; 87328; 87329; 87493; 87651; 93005; 93268; 96374; 96375; 96376; 99285; G0378; Q3014; J2270; J2405; A9270-GY; J3475